=== PATIENT | male | born 1995 | race Caucasian/White ===

== ENCOUNTER 2018-09-18 18:39 | Emergency (ER) | payer SELFPAY ==
--- NOTE | 2018-09-18 18:58 | ER ---
Nurse's Notes [facility] Name: Jose Joseph Age: 23 yrs Sex: Male : 1995 Arrival Date: 09/18/2018 Time: 18:41 Bed 26 Private MD: Unknown, Unknown Diagnosis: Acute upper respiratory infection, unspecified Presentation: 09/18 19:00 Presenting complaint: Patient states: I have cough, congestion, and headache that jb4 started yesterday. Transition of care: patient was not received from another setting of care. Onset of symptoms was September 17, 2018. Risk Assessment: Do you want to hurt yourself or someone else? Patient reports no desire to harm self or others. Initial Sepsis Screen: Does the patient meet any 2 criteria? No. Patient's initial sepsis screen is negative. Does the patient have a suspected source of infection? No. Patient's initial sepsis screen is negative. Care prior to arrival: None. 19:00 Method Of Arrival: Ambulatory 4 19:00 Acuity: JAMISON 5 jb4 Triage Assessment: 19:00 Headache History: The patient has had previous headaches and this one is similar to jb4 previous episodes. General: Appears in no apparent distress. comfortable, Behavior is calm, cooperative, appropriate for age. Pain: Denies pain. EENT: No signs and/or symptoms were reported regarding the EENT system. Neuro: Level of Consciousness is awake, alert, obeys commands, Oriented to person, place, time, situation. Cardiovascular: Patient's skin is warm and dry. Respiratory: Airway is patent Respiratory effort is even, unlabored, Respiratory pattern is regular, symmetrical. GI: No signs and/or symptoms were reported involving the gastrointestinal system. : No signs and/or symptoms were reported regarding the genitourinary system. Derm: Skin is intact, Skin is pink, warm \T\ dry. Musculoskeletal: Circulation, motion, and sensation intact. Historical: - Allergies: 19:00 No Known Allergies; jb4 - Home Meds: 19:00 None [Active]; jb4 - PMHx: 19:00 None; jb4 - PSHx: 19:00 None; jb4 - Immunization history:: Adult Immunizations up to date. - Social history:: Smoking status: Patient uses tobacco products, smokes one pack cigarettes per day. - Ebola Screening: : No symptoms or risks identified at this time. Screenin:04 Abuse screen: Denies threats or abuse. Nutritional screening: No deficits noted. jb4 Tuberculosis screening: No symptoms or risk factors identified. Fall Risk None identified. Assessment: 19:04 General: see triage assessment.. jb4 Vital Signs: 18:47 BP 111 / 74; Pulse 62; Resp 16; Temp 98.4(O); Pulse Ox 100% ; lt1 ED Course: 18:41 Patient arrived in ED. ag5 18:41 Unknown, Unknown is Private Physician. ag5 18:43 James Gonzalez, RN is Primary Nurse. rv 18:43 Lobito Amaya PA is PHCP. cp 18:43 Lobito Brannon MD is Attending Physician. cp 19:00 Arm band placed on right wrist. jb4 19:02 Triage completed. jb4 19:04 Patient has correct armband on for positive identification. Bed in low position. Call jb4 light in reach. Side rails up X 1. 19:04 No provider procedures requiring assistance completed. Patient did not have IV access jb4 during this emergency room visit. Administered Medications: No medications were administered Outcome: 18:58 Discharge ordered by MD. cp 19:12 Discharged to home ambulatory. jb4 19:12 Condition: stable 19:12 Discharge instructions given to patient, Instructed on discharge instructions, follow up and referral plans. Demonstrated understanding of instructions, follow-up care. 19:12 Patient left the ED. jb4 Signatures: Lobito Amaya PA PA cp Bryson, James, RN RN jb James Gonzalez RN RN Hung Chaidez 5 PrattLucrecia lt1
--- NOTE | 2018-09-18 18:59 | EDPHYS ---
Physician Documentation [facility] Name: Jose Joseph Age: 23 yrs Sex: Male : 1995 Arrival Date: 09/18/2018 Time: 18:41 Bed 26 Private MD: Unknown, Unknown ED Physician Lobito Brannon HPI: 09/18 18:52 This 23 yrs old Male presents to ER via Unassigned with complaints of Headache, cp Congestion, Cold Symptoms. 18:52 The patient or guardian reports cough, that is intermittent. Onset: The cp symptoms/episode began/occurred yesterday. Associated signs and symptoms: Pertinent positives: congestion, intermittent headache, Pertinent negatives: diarrhea, ear ache, fever, sore throat, vomiting. Severity of symptoms: in the emergency department the symptoms are unchanged despite home interventions. Patient reports he missed work today due to symptoms and needs work excuse. Historical: - Allergies: 19:00 No Known Allergies; jb4 - Home Meds: 19:00 None [Active]; jb4 - PMHx: 19:00 None; jb4 - PSHx: 19:00 None; jb4 - Immunization history:: Adult Immunizations up to date. - Social history:: Smoking status: Patient uses tobacco products, smokes one pack cigarettes per day. - Ebola Screening: : No symptoms or risks identified at this time. ROS: 18:53 Eyes: Negative for injury, pain, redness, and discharge. cp 18:53 Constitutional: Negative for body aches, chills, fever, poor PO intake. 18:53 ENT: Positive for sinus congestion, Negative for drainage from ear(s), ear pain, sore throat, difficulty swallowing, difficulty handling secretions. 18:53 Respiratory: Positive for cough, Negative for shortness of breath, wheezing. 18:53 Abdomen/GI: Negative for abdominal pain, nausea, vomiting, and diarrhea. 18:53 Skin: Negative for rash. 18:53 Neuro: Positive for intermittent headache, Negative for altered mental status. 18:53 All other systems are negative. Exam: 18:55 Head/Face: Normocephalic, atraumatic. cp 18:55 Constitutional: The patient appears in no acute distress, alert, awake, non-toxic, well developed, well nourished. 18:55 Eyes: Periorbital structures: appear normal, Conjunctiva: normal, no exudate, no injection, Lids and lashes: appear normal, bilaterally. 18:55 ENT: External ear(s): are unremarkable, Ear canal(s): are normal, clear, TM's: bulging, is not appreciated, bilaterally, erythema, is not appreciated, bilaterally, Nose: is normal, Mouth: Lips: moist, Oral mucosa: pink and intact, moist, Posterior pharynx: is normal, airway is patent, no erythema, no exudate. 18:55 Neck: ROM/movement: is normal, is supple, without pain, no range of motions limitations, no meningismus, no nuchal rigidity, Lymph nodes: no appreciated lymphadenopathy. 18:55 Chest/axilla: Inspection: normal, Palpation: is normal, no crepitus, no tenderness. 18:55 Cardiovascular: Rate: normal, Rhythm: regular. 18:55 Respiratory: the patient does not display signs of respiratory distress, Respirations: normal, no use of accessory muscles, no retractions, no splinting, no tachypnea, labored breathing, is not present, Breath sounds: are clear throughout, no decreased breath sounds, no stridor, no wheezing. 18:55 Abdomen/GI: Exam negative for discomfort, distension, guarding, Inspection: abdomen appears normal. 18:55 Skin: no rash present. Vital Signs: 18:47 BP 111 / 74; Pulse 62; Resp 16; Temp 98.4(O); Pulse Ox 100% ; lt1 MDM: 18:46 Patient medically screened. [facility] 18:55 Differential diagnosis: bronchitis, flu, strep throat. 18:57 Data reviewed: vital signs, nurses notes, and as a result, I will discharge patient. 18:57 Counseling: I had a detailed discussion with the patient and/or guardian regarding: the historical points, exam findings, and any diagnostic results supporting the discharge/admit diagnosis, to return to the emergency department if symptoms worsen or persist or if there are any questions or concerns that arise at home. Administered Medications: No medications were administered Disposition: 09/18/18 18:58 Discharged to Home. Impression: Acute upper respiratory infection, unspecified. - Condition is Stable. - Discharge Instructions: Upper Respiratory Infection, Adult. - Medication Reconciliation Form, Thank You Letter, Antibiotic Education, Prescription Opioid Use, Work release form form. - Follow up: Private Physician; When: 2 - 3 days; Reason: Worsening of condition. - Problem is new. - Symptoms are unchanged. Addendum: 09/24/2018 16:46 Co-signature as Attending Physician, Lobito Brannon MD I agree with the assessment and c lundberg plan of care. Signatures: Lobito Brannon MD MD cha Page, Corey PA PA Vitor Chen, RN RN jb4 Corrections: (The following items were deleted from the chart) 09/18 19:12 18:58 09/18/2018 18:58 Discharged to Home. Impression: Acute upper respiratory jb4 infection, unspecified. Condition is Stable. Forms are Medication Reconciliation Form, Thank You Letter, Antibiotic Education, Prescription Opioid Use. Follow up: Private Physician; When: 2 - 3 days; Reason: Worsening of condition. Problem is new. Symptoms are unchanged. cp
== END 2018-09-18 19:12 | disposition home or self-care (01) ==
LOC: ER 18:39
DX: J06.9 Acute upper respiratory infection, unspecified (principal); F17.210 Nicotine dependence, cigarettes, uncomplicated
CPT/HCPCS: 99281